=== PATIENT | female | born 1960 | race Caucasian/White ===

== ENCOUNTER → 2018-08-01 10:52 | Outpatient (CLI) | payer OTHER, SELFPAY ==
--- NOTE | 2018-08-01 11:04 | XR_ITS ---
XR foot RT min 3V HISTORY: ITS.REASON: CLAIR FOOT PAIN ORDERING PHYSICIAN: Elba Caruso DPM PATIENT AGE: 58 years COMPARISON: None FINDINGS: Minimal hypertrophic change at the distal aspect of the first metatarsal. No fracture or dislocation. Normal alignment. IMPRESSION: Minimal hypertrophic change distal aspect of first metatarsal otherwise negative
--- NOTE | 2018-08-01 11:04 | XR_ITS ---
XR foot LT min 3V HISTORY: ITS.REASON: BILAT FOOT PAIN ORDERING PHYSICIAN: Elba Caruso DPM PATIENT AGE: 58 years COMPARISON: None FINDINGS: No fracture or dislocation. No lytic or blastic change. There is normal mineralization.. Minimal osteoarthritic changes present at the first metatarsophalangeal junction.. Small calcaneal spur is noted and there is an enthesophyte at the Achilles insertion. IMPRESSION: Minimal osteoarthritic change first metatarsophalangeal junction
== END ==
PROVIDERS: PCP Family Medicine; Visit Provider Podiatrist
DX: M79.671 Pain in right foot (principal); M79.672 Pain in left foot
CPT/HCPCS: 73630